=== PATIENT | male | born 1960 | race Caucasian/White ===

== ENCOUNTER 2021-07-26 11:39 | Inpatient (IN) ==
[2021-07-26] MEDS ORDERED: 0.9 % Sodium Chloride 1,000 ML IVC ONE (13:07)
[2021-07-26 13:31] LABS: Basophils % 0.1 %; Eosinophils % 0.1 %; Hematocrit 47.1 % (37.5-50.1); Hemoglobin 15.2 g/dL (12.9-16.9); Immature Granulocytes % 0.3 % (0-4); Lymphocytes # 0.4 K/mcL (0.6-4.6); Lymphocytes % 2.3 %; Mean Corpuscular HGB Conc 32.3 g/dL (31.6-35.5); Mean Corpuscular Hemoglobin 29.3 pg (28.0-33.3); Mean Corpuscular Volume 90.8 fL (83.0-100.0); Mean Platelet Volume 12.8 fL (9.4-12.4); Monocytes % 6.6 %; Neutrophils # 13.9 K/mcL (1.6-8.9); Platelet Count 211 K/mcL (140-400); Red Blood Count 5.19 M/mcL (4.19-5.50); Red Cell Distribution Width 14.1 % (11.5-14.5); Segmented Neutrophils % 90.6 %; White Blood Count 15.4 K/mcL (4.3-11.1)
[2021-07-26 13:35] LABS: Troponin I 0.11 ng/mL (< 0.04)
[2021-07-26 13:45] LABS: Bilirubin,Urine Negative (Negative); Blood,Urine Trace (Negative); Clarity,Urine Clear (Clear); Color,Urine Light-Yellow (Yellow); Glucose,Urine (UA) >=1000 mg/dL (Normal); Ketones,Urine Trace mg/dL (Negative); Leukocyte Esterase,Urine Negative (Negative); Nitrite,Urine Negative (Negative); Protein,Urine Negative (Neg-Trace); RBC,Urine 0-3 per hpf (0-3); Specific Gravity,Urine 1.029 (1.010-1.025); Squamous Epithelial Cell,Urine Few per hpf (None-Few); Urobilinogen,Urine Normal (Normal); WBC,Urine 0-3 per hpf (0-3)
[2021-07-26 13:59] LABS: Albumin 4.1 g/dL (3.5-5.7); Albumin/Globulin Ratio 1.6 (1.1-2.2); Bilirubin,Total 0.9 mg/dL (0.3-1.0); Globulin 2.6 g/dL (2.4-3.5); Magnesium 3.2 mg/dL (1.6-2.6); Potassium 5.2 mEq/L (3.5-5.1); Thyroid Stimulating Hormone 0.741 mcIU/mL (0.340-5.600); Total Protein 6.7 g/dL (6.4-8.9)
[2021-07-26] MEDS ORDERED: 0.9 % Sodium Chloride 1,000 ML IV ONE (14:04)
[2021-07-26 14:18] LABS: Influenza A PCR Negative (Negative); Influenza B PCR Negative (Negative); Resp. Syncytial Virus PCR Negative (Negative); SARS-CoV-2 by PCR (In House) Negative (Negative)
[2021-07-26 14:38] LABS: VBG HCO3 20 mEq/L (21-27); VBG PCO2 43 mmHg (41-51); VBG PH 7.28 pH Units (7.32-7.42); VBG PO2 41 mmHg (25-50)
[2021-07-26 14:55] LABS: Estimated Average Glucose 427 mg/dl; Hemoglobin A1C 16.5 %
[2021-07-26] MEDS ORDERED: Insulin Regular, Human 100 UNIT/ML IV PRN ×2 (16:45)
[2021-07-26] MEDS ORDERED: Acetaminophen 325 MG TABLET PO PRN (16:45)
[2021-07-26] MEDS ORDERED: Ondansetron 4 MG/2 ML VIAL IVP PRN (16:45)
[2021-07-26] MEDS ORDERED: 0.45 % Sodium Chloride w/KCl 20 MEQ/1,000 ML MLS IVC SCH (16:45)
[2021-07-26] MEDS ORDERED: D5% in 0.45% NACL 1,000 ML IVC PRN (16:45)
[2021-07-26] MEDS ORDERED: Naloxone 0.4 MG/ML INJ IVP PRN (16:45)
[2021-07-26] MEDS ORDERED: *HR* Dextrose 50 % in Water (Syg) 50 ML SYRINGE IVP PRN (16:45)
[2021-07-26] MEDS ORDERED: Perflutren Lipid Microsphere 1.3 ML in 0.9 % Sodium Chloride 8.7 ML IVP PRN (17:59)
[2021-07-26] MEDS: Aspirin Enteric Coated 81 MG Tablet PO SCH (18:37)
[2021-07-26 19:05] LABS: Magnesium 3.1 mg/dL (1.6-2.6)
[2021-07-26 20:00] LABS: Albumin 4.2 g/dL (3.5-5.7); BUN/Creatinine Ratio 36 (6-26); Blood Urea Nitrogen 85 mg/dL (8-23); Calcium 9.1 mg/dL (8.6-10.3); Carbon Dioxide 20 mEq/L (23-29); Chloride 94 mEq/L (98-107); Phosphorous 3.3 mg/dL (2.7-4.5); Potassium 4.4 mEq/L (3.5-5.1); Sodium 130 mEq/L (136-145); eGFR For African Americans 34 (> 60); eGFR For Non-African Americans 28 (> 60)
[2021-07-26] MEDS: Nystatin SUSP 5 ML UD.LIQ BC SCH ×2 (20:47→20:48)
[2021-07-26] MEDS: 0.45 % Sodium Chloride w/KCl 20 MEQ/1,000 ML MLS IVC SCH (20:49)
[2021-07-26 20:58] LABS: Calcium 9.2 mg/dL (8.6-10.3); Potassium 4.5 mEq/L (3.5-5.1)
[2021-07-26 22:46] LABS: VBG HCO3 20 mEq/L (21-27); VBG PCO2 40 mmHg (41-51); VBG PH 7.31 pH Units (7.32-7.42); VBG PO2 180 mmHg (25-50)
[2021-07-26 23:19] LABS: VBG HCO3 18 mEq/L (21-27); VBG PCO2 33 mmHg (41-51); VBG PH 7.35 pH Units (7.32-7.42); VBG PO2 214 mmHg (25-50)
[2021-07-26] MEDS: Verapamil ER (24 HR) 120 MG TABLET.ER PO SCH (23:35)
[2021-07-27] MEDS: 0.45 % Sodium Chloride w/KCl 20 MEQ/1,000 ML MLS IVC SCH ×2 (00:52→05:09)
[2021-07-27 01:46] LABS: Calcium 8.8 mg/dL (8.6-10.3); Potassium 3.9 mEq/L (3.5-5.1)
[2021-07-27] MEDS ORDERED: *HR* HYDROcodone/Acet 5/325 mg TABLET PO ONE (04:07)
[2021-07-27 05:50] LABS: Calcium 8.7 mg/dL (8.6-10.3); Magnesium 2.5 mg/dL (1.6-2.6); Potassium 4.1 mEq/L (3.5-5.1)
[2021-07-27 08:01] LABS: Hematocrit 43.1 % (37.5-50.1); Hemoglobin 14.8 g/dL (12.9-16.9); Mean Corpuscular HGB Conc 34.3 g/dL (31.6-35.5); Mean Corpuscular Hemoglobin 28.8 pg (28.0-33.3); Mean Platelet Volume 12.3 fL (9.4-12.4); Platelet Count 187 K/mcL (140-400); Red Blood Count 5.13 M/mcL (4.19-5.50); White Blood Count 11.6 K/mcL (4.3-11.1)
[2021-07-27] MEDS: D5% in 0.45% NACL w KCl 20 MEQ/1,000 ML MLS IVC PRN ×2 (08:15→13:15)
[2021-07-27 08:27] LABS: ABG Base Excess -6 mEq/L (-2 to 3); ABG HCO3 14 mEq/L (21-27); ABG Oxygen Saturation 99 % (95-98); ABG PCO2 17 mmHg (35-45); ABG PH 7.53 pH Units (7.32-7.45); ABG PO2 115 mmHg (85-104); ABG TCO2 15 mEq/L (20-26)
[2021-07-27] MEDS: Nystatin SUSP 5 ML UD.LIQ BC SCH ×4 (08:33→20:08)
[2021-07-27] MEDS: *HR* Enoxaparin 40 MG/0.4 ML SYRINGE SQ SCH (08:35)
[2021-07-27 10:51] LABS: Calcium 8.5 mg/dL (8.6-10.3); Potassium 3.5 mEq/L (3.5-5.1)
[2021-07-27] MEDS: Verapamil ER (24 HR) 120 MG TABLET.ER PO SCH ×2 (13:30→20:08)
[2021-07-27] MEDS: Aspirin Enteric Coated 81 MG Tablet PO SCH (13:30)
[2021-07-27] MEDS: Valsartan 160 MG TABLET PO SCH (13:30)
[2021-07-27 14:03] LABS: VBG HCO3 18 mEq/L (21-27); VBG PCO2 34 mmHg (41-51); VBG PH 7.33 pH Units (7.32-7.42); VBG PO2 200 mmHg (25-50)
[2021-07-27] MEDS ORDERED: *HR* Metoprolol 5 MG/5 ML VIAL IVP PRN (14:31)
[2021-07-27 14:46] LABS: Calcium 8.6 mg/dL (8.6-10.3); Potassium 3.6 mEq/L (3.5-5.1)
[2021-07-27] MEDS ORDERED: Insulin DETEMIR 100 UNIT/ML X5UNITS SUBQ ONE (16:46)
[2021-07-27] MEDS ORDERED: Dextrose 4 GM Chewable Tablets PO PRN ×2 (16:54)
[2021-07-27] MEDS ORDERED: D5% in Water 1,000 ML IVC PRN (16:54)
[2021-07-27] MEDS: Insulin LISPRO 300 UNITS/3 ML VIAL SUBQ SCH ×3 (17:46→22:34)
[2021-07-27 23:37] LABS: Calcium 7.9 mg/dL (8.6-10.3); Potassium 3.5 mEq/L (3.5-5.1)
[2021-07-28 00:07] LABS: Adenovirus F 40/41 PCR Not detected (Not detect); Astrovirus PCR Not detected (Not detect); C.difficile Toxin A/B Gene PCR DETECTED (Not detect); Campylobacter by PCR Not detected (Not detect); Cryptosporidium by PCR Not detected (Not detect); Cyclospora cayetanensis PCR Not detected (Not detect); Entamoeba histolytica PCR Not detected (Not detect); Enteroaggregative E.coli(EAEC) Not detected (Not detect); Enteropathogenic E.coli(EPEC) Not detected (Not detect); Enterotoxigenic E.coli (ETEC) Not detected (Not detect); Giardia lamblia PCR Not detected (Not detect); Norovirus GI/GII PCR Not detected (Not detect); Plesiomonas shigelloides PCR Not detected (Not detect); Rotavirus A PCR Not detected (Not detect); Salmonella PCR Not detected (Not detect); Sapovirus PCR Not detected (Not detect); Shig/EnteroinvasiveE coli EIEC Not detected (Not detect); Shigalike tox-prod E coli STEC Not detected (Not detect); Vibrio PCR Not detected (Not detect); Vibrio cholerae PCR Not detected (Not detect); Yersinia enterocolitica PCR Not detected (Not detect)
[2021-07-28] MEDS: Vancomycin Oral Soln 125 MG/2.5 ML UDC PO SCH ×5 (02:33→21:46)
[2021-07-28 06:05] LABS: Hematocrit 43.4 % (37.5-50.1); Hemoglobin 15.2 g/dL (12.9-16.9); Mean Corpuscular Hemoglobin 29.7 pg (28.0-33.3); Mean Corpuscular Volume 84.8 fL (83.0-100.0); Mean Platelet Volume 12.6 fL (9.4-12.4); Platelet Count 188 K/mcL (140-400); Red Blood Count 5.12 M/mcL (4.19-5.50)
[2021-07-28 06:42] LABS: Calcium 7.7 mg/dL (8.6-10.3); Potassium 3.7 mEq/L (3.5-5.1)
[2021-07-28] MEDS ORDERED: Insulin DETEMIR 100 UNIT/ML X5UNITS SUBQ ONE (08:06)
[2021-07-28] MEDS ORDERED: 0.9 % Sodium Chloride 1,000 ML IVC ONE (08:39)
[2021-07-28] MEDS: Aspirin Enteric Coated 81 MG Tablet PO SCH (08:51)
[2021-07-28] MEDS: Valsartan 160 MG TABLET PO SCH (08:51)
[2021-07-28] MEDS: *HR* Enoxaparin 40 MG/0.4 ML SYRINGE SQ SCH (08:52)
[2021-07-28] MEDS: Verapamil ER (24 HR) 120 MG TABLET.ER PO SCH ×2 (08:52→21:28)
[2021-07-28] MEDS: Nystatin SUSP 5 ML UD.LIQ BC SCH ×4 (08:53→21:48)
[2021-07-28] MEDS: Insulin LISPRO 300 UNITS/3 ML VIAL SUBQ SCH ×4 (09:08→21:48)
[2021-07-28 13:24] LABS: Sodium, Urine 14.9 mEq/L
[2021-07-28 13:49] LABS: Calcium 7.2 mg/dL (8.6-10.3); Potassium 3.6 mEq/L (3.5-5.1)
[2021-07-28] MEDS ORDERED: SODIUM CHLORIDE/NAHCO3/KCL/PEG 4,000 ML SOLN.RECON PO ONE (17:00)
[2021-07-28] MEDS ORDERED: Acetaminophen IV 1,000 MG/100 ML BAG IVPB ONE (17:41)
[2021-07-28] MEDS: Insulin DETEMIR 100 UNIT/ML X5UNITS SUBQ SCH (21:47)
[2021-07-29 03:25] LABS: Hematocrit 42.8 % (37.5-50.1); Hemoglobin 15.1 g/dL (12.9-16.9); Mean Corpuscular HGB Conc 35.3 g/dL (31.6-35.5); Mean Corpuscular Hemoglobin 29.7 pg (28.0-33.3); Mean Corpuscular Volume 84.3 fL (83.0-100.0); Mean Platelet Volume 12.9 fL (9.4-12.4); Platelet Count 209 K/mcL (140-400); Red Blood Count 5.08 M/mcL (4.19-5.50); Red Cell Distribution Width 13.7 % (11.5-14.5); White Blood Count 15.4 K/mcL (4.3-11.1)
[2021-07-29 03:42] LABS: Calcium 7.7 mg/dL (8.6-10.3); Potassium 3.3 mEq/L (3.5-5.1)
[2021-07-29] MEDS: *HR* Enoxaparin 40 MG/0.4 ML SYRINGE SQ SCH (06:46)
[2021-07-29] MEDS ORDERED: *HR* Heparin 5,000 UNIT/ML VIAL IVP PRN ×2 (07:52)
[2021-07-29] MEDS ORDERED: *HR* Heparin 5,000 UNIT/ML VIAL IVP ONE (07:52)
[2021-07-29] MEDS ORDERED: Heparin 25,000UNIT/250ML 1/2NS 25,000 UNIT/250 ML IV.SOLN IVC SCH (08:00)
[2021-07-29 09:39] LABS: Heparin anti-factor XA UFH 0.24 IU/mL (0.30-0.70); Prothrombin Time 11.1 Seconds (9.4-12.1)
[2021-07-29 09:51] LABS: Magnesium 2.5 mg/dL (1.6-2.6); Phosphorous 2.5 mg/dL (2.7-4.5)
[2021-07-29] MEDS: Insulin LISPRO 300 UNITS/3 ML VIAL SUBQ SCH ×4 (10:03→19:53)
[2021-07-29] MEDS: Heparin 25,000UNIT/250ML 1/2NS 25,000 UNIT/250 ML IV.SOLN IVC SCH (10:05)
[2021-07-29] MEDS ORDERED: Sodium Bicarbonate 75 MEQ in 0.45 % Sodium Chloride 1,000 ML IVC SCH ×2 (10:45→15:30)
[2021-07-29] MEDS: Vancomycin Oral Soln 125 MG/2.5 ML UDC PO SCH (11:20)
[2021-07-29] MEDS: Nystatin SUSP 5 ML UD.LIQ BC SCH ×4 (11:31→19:49)
[2021-07-29] MEDS: Verapamil ER (24 HR) 120 MG TABLET.ER PO SCH ×2 (11:34→19:46)
[2021-07-29] MEDS: Aspirin Enteric Coated 81 MG Tablet PO SCH (11:34)
[2021-07-29] MEDS: Valsartan 160 MG TABLET PO SCH (11:35)
[2021-07-29] MEDS: Lactobacillus 1 EACH CAP.SPRINK PO SCH ×2 (12:50→19:50)
[2021-07-29] MEDS: Fidaxomicin 200 MG TABLET PO SCH ×2 (12:51→19:49)
[2021-07-29] MEDS: Pantoprazole 40 MG VIAL IVP SCH (12:54)
[2021-07-29] MEDS ORDERED: *HR* LORazepam 2 MG/ML VIAL IVP ONE (17:06)
[2021-07-29] MEDS: Insulin DETEMIR 100 UNIT/ML X5UNITS SUBQ SCH (19:51)
[2021-07-30 02:08] LABS: Hematocrit 37.7 % (37.5-50.1); Mean Corpuscular Hemoglobin 29.2 pg (28.0-33.3); Mean Corpuscular Volume 86.1 fL (83.0-100.0); Mean Platelet Volume 12.7 fL (9.4-12.4); Platelet Count 155 K/mcL (140-400); Red Blood Count 4.38 M/mcL (4.19-5.50); Red Cell Distribution Width 13.7 % (11.5-14.5); White Blood Count 11.8 K/mcL (4.3-11.1)
[2021-07-30 02:09] LABS: Hemoglobin 12.8 g/dL (12.9-16.9)
[2021-07-30 02:26] LABS: Calcium 7.3 mg/dL (8.6-10.3); Potassium 3.9 mEq/L (3.5-5.1)
[2021-07-30 02:27] LABS: Complement C3 121 mg/dL (87-200)
[2021-07-30] MEDS: Nystatin SUSP 5 ML UD.LIQ BC SCH ×4 (09:48→22:05)
[2021-07-30] MEDS: Pantoprazole 40 MG VIAL IVP SCH (09:48)
[2021-07-30] MEDS: Valsartan 160 MG TABLET PO SCH (09:49)
[2021-07-30] MEDS: Fidaxomicin 200 MG TABLET PO SCH ×2 (09:49→22:05)
[2021-07-30] MEDS: Verapamil ER (24 HR) 120 MG TABLET.ER PO SCH ×2 (09:50→22:05)
[2021-07-30] MEDS: Lactobacillus 1 EACH CAP.SPRINK PO SCH ×2 (09:50→22:05)
[2021-07-30] MEDS: Aspirin Enteric Coated 81 MG Tablet PO SCH (09:50)
[2021-07-30] MEDS: Insulin LISPRO 300 UNITS/3 ML VIAL SUBQ SCH ×4 (09:51→18:13)
[2021-07-30] MEDS: Insulin DETEMIR 100 UNIT/ML X5UNITS SUBQ SCH ×2 (09:52→22:05)
[2021-07-30] MEDS: Sodium Bicarbonate 150 MEQ in Water for inj. (sterile) 1,000 ML IVC SCH ×2 (11:55→22:27)
[2021-07-30] MEDS: Heparin 25,000UNIT/250ML 1/2NS 25,000 UNIT/250 ML IV.SOLN IVC SCH (12:11)
[2021-07-30] MEDS ORDERED: Saliva Stimulant 44.3ml BOTTLE PO PRN (13:46)
[2021-07-31 06:58] LABS: Hematocrit 27.4 % (37.5-50.1); Mean Corpuscular HGB Conc 35.4 g/dL (31.6-35.5); Mean Corpuscular Hemoglobin 29.5 pg (28.0-33.3); Mean Corpuscular Volume 83.3 fL (83.0-100.0); Mean Platelet Volume 12.1 fL (9.4-12.4); Platelet Count 139 K/mcL (140-400); Red Blood Count 3.29 M/mcL (4.19-5.50); Red Cell Distribution Width 13.1 % (11.5-14.5); White Blood Count 8.8 K/mcL (4.3-11.1)
[2021-07-31 06:59] LABS: Hemoglobin 9.7 g/dL (12.9-16.9)
[2021-07-31] MEDS: Nystatin SUSP 5 ML UD.LIQ BC SCH ×4 (08:23→20:55)
[2021-07-31] MEDS: Pantoprazole 40 MG VIAL IVP SCH (08:23)
[2021-07-31] MEDS: Fidaxomicin 200 MG TABLET PO SCH (08:23)
[2021-07-31] MEDS: Aspirin Enteric Coated 81 MG Tablet PO SCH (08:24)
[2021-07-31] MEDS: Valsartan 160 MG TABLET PO SCH (08:24)
[2021-07-31] MEDS: Verapamil ER (24 HR) 120 MG TABLET.ER PO SCH ×2 (08:24→20:55)
[2021-07-31] MEDS: Lactobacillus 1 EACH CAP.SPRINK PO SCH ×2 (08:24→20:55)
[2021-07-31 08:30] LABS: Hematocrit 28.5 % (37.5-50.1); Hemoglobin 10.1 g/dL (12.9-16.9)
[2021-07-31] MEDS: Insulin LISPRO 300 UNITS/3 ML VIAL SUBQ SCH ×4 (08:36→17:24)
[2021-07-31] MEDS: Insulin DETEMIR 100 UNIT/ML X5UNITS SUBQ SCH ×2 (08:43→20:56)
[2021-07-31 08:55] LABS: Calcium 7.2 mg/dL (8.6-10.3); Potassium 3.3 mEq/L (3.5-5.1)
[2021-07-31] MEDS ORDERED: hydrOXYzine pamoate 25 MG CAPSULE PO ONE (09:14)
[2021-07-31] MEDS: Vancomycin Oral Soln 125 MG/2.5 ML UDC PO SCH ×3 (13:04→20:56)
[2021-07-31 13:32] LABS: INR 1.1; Prothrombin Time 12.4 Seconds (9.4-12.1)
[2021-07-31] MEDS ORDERED: Warfarin perPT PO PRN ×2 (18:00)
[2021-07-31] MEDS ORDERED: *HR* Warfarin 5 MG TABLET PO ONE (18:00)
[2021-08-01 02:02] LABS: Hematocrit 26.8 % (37.5-50.1); Hemoglobin 9.3 g/dL (12.9-16.9); Mean Corpuscular HGB Conc 34.7 g/dL (31.6-35.5); Mean Corpuscular Hemoglobin 29.1 pg (28.0-33.3); Mean Corpuscular Volume 83.8 fL (83.0-100.0); Mean Platelet Volume 12.1 fL (9.4-12.4); Platelet Count 148 K/mcL (140-400); White Blood Count 8.6 K/mcL (4.3-11.1)
[2021-08-01 02:12] LABS: Prothrombin Time 11.5 Seconds (9.4-12.1)
[2021-08-01 02:22] LABS: BUN/Creatinine Ratio 21 (6-26); Blood Urea Nitrogen 28 mg/dL (8-23); Calcium 7.5 mg/dL (8.6-10.3); Carbon Dioxide 23 mEq/L (23-29); Chloride 103 mEq/L (98-107); Glucose 267 mg/dL (70-105); Osmolality,Calculated 291 (280-300); Potassium 3.8 mEq/L (3.5-5.1); Sodium 133 mEq/L (136-145); eGFR For African Americans > 60 (> 60); eGFR For Non-African Americans 53 (> 60)
[2021-08-01 07:52] VITALS: BP 136/73; PULSE 109; TEMP 98.2; O2SAT 93
[2021-08-01] MEDS: Insulin DETEMIR 100 UNIT/ML X5UNITS SUBQ SCH (08:34)
[2021-08-01] MEDS: Nystatin SUSP 5 ML UD.LIQ BC SCH (08:35)
[2021-08-01] MEDS: Insulin LISPRO 300 UNITS/3 ML VIAL SUBQ SCH (08:35)
[2021-08-01] MEDS: Valsartan 160 MG TABLET PO SCH (08:35)
[2021-08-01] MEDS: Verapamil ER (24 HR) 120 MG TABLET.ER PO SCH (08:35)
[2021-08-01] MEDS: Lactobacillus 1 EACH CAP.SPRINK PO SCH (08:35)
[2021-08-01] MEDS: Vancomycin Oral Soln 125 MG/2.5 ML UDC PO SCH (08:36)
[2021-08-01] MEDS: Pantoprazole 40 MG VIAL IVP SCH (08:36)
[2021-08-01 09:40] LABS: Saccharomyces cerevisiae IgA 7.6 Units (0.0-24.9)
[2021-08-01] MEDS ORDERED: *HR* Warfarin 5 MG TABLET PO ONE (18:00)
[2021-08-03 01:22] LABS: Alpha 2 Globulin (PEP) 0.76 g/dL (0.48-1.05); Beta Globulin (PEP) 0.62 g/dL (0.48-1.10)
[2021-08-03 07:28] LABS: IFE Reflexed IFE Done; Immunoglobulin A 160 mg/dL (68-408); Immunoglobulin G 510 mg/dL (768-1632); Immunoglobulin M 41 mg/dL (35-263)
== END 2021-08-01 12:33 | disposition home or self-care (01) | DRG 637 ==
LOC: EMEROOARM 11:39 → 2NNU 11:39 → SUATTDRO 17:24 → 2NNU 17:55 → 3BNU 07-28 11:28 → 3ANU 07-28 11:28
PROVIDERS: ADMIT Internal Medicine; ATTEND Family Medicine